=== PATIENT | male | born 1945 | race Caucasian/White ===

== ENCOUNTER 2018-11-03 19:59 | Inpatient (IN) ==
[2018-11-03] MEDS ORDERED: CEFEPIME 2,000 MG in SODIUM CHLORIDE 0.9% 100 ML IV STA (21:35)
[2018-11-03] MEDS ORDERED: VANCOMYCIN INJ 1,250 MG in SODIUM CHLORIDE 0.9% 250 ML IV STA (21:35)
[2018-11-03 22:07] LABS: Basophils % 0.2 % (0.0-0.8); Eosinophils # 0.1 10*3/uL (0.0-0.87); Hematocrit 34.2 VOL% (42.0-52.0); Hemoglobin 10.6 GM/DL (14.0-18.0); Immature Granulocytes % 0.4 %; Immature Granulocytes Absolute 0.05 #; Lymphocytes # 1.4 10*3/uL (1.4-4.0); Lymphocytes % 10.8 % (21.2-54.2); Mean Corpuscular Volume 97.4 FL (87-102); Mean Platelet Volume 9.4 FL (9.6-12.0); Monocytes % 5.2 % (1.7-12.7); Neutrophils % 82.4 % (38.7-73.9); Platelet Count 430 T/CUMM (130-400); Red Blood Count 3.51 MC/CUMM (3.8-5.5); Red Cell Distribution Width 12.8 % (9.3-17.3)
[2018-11-03] MEDS ORDERED: CEFEPIME 2,000 MG VIAL ONE (22:15)
[2018-11-03] MEDS ORDERED: SODIUM CHLORIDE 0.9% 1,000 ML IV STA (22:27)
[2018-11-03 22:30] LABS: Alanine Aminotransferase 72 U/L (16-61); Albumin 2.5 G/DL (3.4-5.0); Alkaline Phosphatase 112 U/L (45-117); Aspartate Amino Transferase 41 U/L (0-37); Bilirubin,Total < 0.39 MG/DL (0.2-1.0); Blood Urea Nitrogen 25 MG/DL (7-18); Calcium 8.8 MG/DL (8.5-10.1); Glucose 285 MG/DL (74-106); Total Protein 7.7 G/DL (6.4-8.3)
[2018-11-03] MEDS ORDERED: CALCIUM GLUCONATE 2,000 MG in SODIUM CHLORIDE 0.9% 100 ML IV ONE (22:48)
[2018-11-03] MEDS ORDERED: DEXTROSE 50% 25 GM/50 ML VIAL IV STA (22:49)
[2018-11-03] MEDS ORDERED: SODIUM BICARBONATE 50 MEQ/50 ML VIAL IV STA (22:49)
[2018-11-03] MEDS ORDERED: INSULIN REGULAR 100 UNIT/ML IV STA (22:49)
[2018-11-03] MEDS ORDERED: SODIUM POLYSTYRENE SULFATE 15 GM/60 ML BOTTLE PO STA (22:50)
[2018-11-03] MEDS ORDERED: SODIUM BICARBONATE 50 MEQ/50 ML SYRINGE IV ONE (23:09)
[2018-11-03] MEDS ORDERED: DEXTROSE 50% 25 GM/50 ML SYRINGE IV ONE (23:09)
[2018-11-04] MEDS ORDERED: hydrALAZINE 25 MG TABLET PO ONE (00:08)
[2018-11-04] MEDS ORDERED: hydroCHLOROthiazide 25 MG TABLET ONE (00:08)
[2018-11-04] MEDS ORDERED: hydrALAZINE 20 MG/1 ML VIAL IV PRN (00:56)
[2018-11-04] MEDS ORDERED: GLUCAGON 1 MG VIAL IM PRN (00:56)
[2018-11-04] MEDS ORDERED: DEXTROSE 50% 25 GM/50 ML VIAL IV PRN (00:56)
[2018-11-04] MEDS ORDERED: ACETAMINOPHEN 325 MG TABLET PO PRN (00:56)
[2018-11-04] MEDS ORDERED: ONDANSETRON 4 MG/2 ML VIAL IV PRN (00:56)
[2018-11-04] MEDS ORDERED: HYDROmorphone 2 MG/1 ML VIAL IV PRN (00:56)
[2018-11-04] MEDS ORDERED: DOCUSATE SODIUM 100 MG CAPSULE PO PRN (00:56)
[2018-11-04 04:22] LABS: Basophils % 0.2 % (0.0-0.8); Eosinophils # 0.1 10*3/uL (0.0-0.87); Eosinophils % 1.3 % (0.00-10.9); Hematocrit 30.3 VOL% (42.0-52.0); Hemoglobin 9.6 GM/DL (14.0-18.0); Immature Granulocytes % 0.2 %; Immature Granulocytes Absolute 0.02 #; Lymphocytes # 1.3 10*3/uL (1.4-4.0); Lymphocytes % 12.2 % (21.2-54.2); Mean Corpuscular HGB Conc 31.7 GM/DL (32-36); Mean Corpuscular Volume 95.6 FL (87-102); Mean Platelet Volume 9.6 FL (9.6-12.0); Monocytes % 5.7 % (1.7-12.7); Neutrophils % 80.4 % (38.7-73.9); Platelet Count 381 T/CUMM (130-400); Red Blood Count 3.17 MC/CUMM (3.8-5.5); Red Cell Distribution Width 12.7 % (9.3-17.3); White Blood Count 10.6 T/CUMM (4-12)
[2018-11-04 04:57] LABS: Calcium 8.8 MG/DL (8.5-10.1); Osmolality,Calculated 284.5 MOS/KG (273-304)
[2018-11-04] MEDS: CEFEPIME 1,000 MG in SODIUM CHLORIDE 0.9% 100 ML IV SCH ×3 (05:26→18:25)
[2018-11-04] MEDS: INSULIN REGULAR 100 UNIT/ML SUBCUT SCH ×3 (05:42→17:06)
[2018-11-04] MEDS: amLODIPine 10 MG TABLET PO SCH (09:26)
[2018-11-04] MEDS: GABAPENTIN 300 MG CAPSULE PO SCH ×2 (09:26→21:39)
[2018-11-04] MEDS: hydrALAZINE 25 MG TABLET PO SCH ×3 (09:26→21:39)
[2018-11-04] MEDS ORDERED: LIDOCAINE 1% 20 ML VIAL ONE (14:20)
[2018-11-04] MEDS: VANCOMYCIN INJ 1,500 MG in SODIUM CHLORIDE 0.9% 500 ML IV SCH (16:07)
[2018-11-05] MEDS: CEFEPIME 1,000 MG in SODIUM CHLORIDE 0.9% 100 ML IV SCH ×3 (01:29→11:59)
[2018-11-05] MEDS: INSULIN REGULAR 100 UNIT/ML SUBCUT SCH ×3 (01:34→11:58)
[2018-11-05 06:04] LABS: Basophils % 0.2 % (0.0-0.8); Eosinophils # 0.3 10*3/uL (0.0-0.87); Eosinophils % 3.1 % (0.00-10.9); Hematocrit 29.9 VOL% (42.0-52.0); Hemoglobin 9.7 GM/DL (14.0-18.0); Immature Granulocytes % 0.2 %; Immature Granulocytes Absolute 0.02 #; Lymphocytes # 1.4 10*3/uL (1.4-4.0); Lymphocytes % 16.3 % (21.2-54.2); Mean Corpuscular HGB Conc 32.4 GM/DL (32-36); Mean Corpuscular Volume 95.2 FL (87-102); Mean Platelet Volume 9.2 FL (9.6-12.0); Monocytes % 6.5 % (1.7-12.7); Neutrophils % 73.7 % (38.7-73.9); Platelet Count 378 T/CUMM (130-400); Red Blood Count 3.14 MC/CUMM (3.8-5.5); Red Cell Distribution Width 12.8 % (9.3-17.3); White Blood Count 8.5 T/CUMM (4-12)
[2018-11-05 06:21] LABS: Calcium 8.4 MG/DL (8.5-10.1); Osmolality,Calculated 280.7 MOS/KG (273-304)
[2018-11-05] MEDS ORDERED: MIDAZOLAM 2 MG/2 ML VIAL ONE (06:39)
[2018-11-05] MEDS: hydrALAZINE 25 MG TABLET PO SCH ×2 (09:31→14:55)
[2018-11-05] MEDS: GABAPENTIN 300 MG CAPSULE PO SCH (09:31)
[2018-11-05] MEDS: amLODIPine 10 MG TABLET PO SCH (09:31)
[2018-11-05] MEDS: VANCOMYCIN INJ 1,500 MG in SODIUM CHLORIDE 0.9% 500 ML IV SCH (10:24)
[2018-11-05 11:23] VITALS: BP 159/63
[2018-11-05] MEDS ORDERED: SODIUM HYPOCHLORITE 0.25% IRRIG 473 ML BOTTLE TOP SCH (15:00)
== END 2018-11-05 15:30 | disposition home health service (06) | DRG 617 ==
LOC: N.ED 19:59 → N.EDINP 11-04 00:08 → N.3E 11-04 00:48
PROVIDERS: ADMIT Internal Medicine; ATTEND Internal Medicine

== ENCOUNTER 2018-11-11 17:21 | Inpatient (IN) ==
[2018-11-11] MEDS ORDERED: SODIUM CHLORIDE 0.9% 1,000 ML IV STA (17:53)
[2018-11-11] MEDS ORDERED: VANCOMYCIN INJ 1,000 MG in SODIUM CHLORIDE 0.9% 250 ML IV STA (17:53)
[2018-11-11 18:38] LABS: Basophils % 0.5 % (0.0-0.8); Hematocrit 30.1 VOL% (42.0-52.0); Hemoglobin 9.6 GM/DL (14.0-18.0); Immature Granulocytes % 0.5 %; Immature Granulocytes Absolute 0.03 #; Lymphocytes # 0.4 10*3/uL (1.4-4.0); Lymphocytes % 6.3 % (21.2-54.2); Mean Corpuscular HGB Conc 31.9 GM/DL (32-36); Mean Corpuscular Volume 93.8 FL (87-102); Mean Platelet Volume 9.7 FL (9.6-12.0); Monocytes % 5.6 % (1.7-12.7); Neutrophils % 87.1 % (38.7-73.9); Platelet Count 300 T/CUMM (130-400); Red Blood Count 3.21 MC/CUMM (3.8-5.5); White Blood Count 6.6 T/CUMM (4-12)
[2018-11-11] MEDS ORDERED: ALBUTEROL NEB SOLN 5 MG/ML 20 ML/BOTTLE CONT NEB STA (18:43)
[2018-11-11 18:48] LABS: PT Patient Result 10.9 SECS (9.6-12.2)
[2018-11-11 18:55] LABS: Alanine Aminotransferase 70 U/L (16-61); Albumin 2.6 G/DL (3.4-5.0); Alkaline Phosphatase 95 U/L (45-117); Aspartate Amino Transferase 56 U/L (0-37); Blood Urea Nitrogen 37 MG/DL (7-18); Calcium 8.1 MG/DL (8.5-10.1); Glucose 139 MG/DL (74-106); Osmolality,Calculated 270.8 MOS/KG (273-304); Total Protein 6.6 G/DL (6.4-8.3)
[2018-11-11 18:56] LABS: Troponin I 0.054 NG/ML (0.00-0.045)
[2018-11-11] MEDS ORDERED: NITROGLYCERIN 2% OINT 1 INCH/GM PACK TOP STA (19:04)
[2018-11-11 19:45] LABS: Sedimentation Rate-Westergren 117 MM/HR (0-20)
[2018-11-11 20:18] LABS: Apearance,Urine CLEAR (Clear); Bacteria,Urine Occasional /HPF (Few); Bilirubin,Urine Negative (Negative); Blood, Urine Negative (Negative); Glucose,Urine (UA) Negative (Negative); Hyaline Casts,Urine 13 /LPF (0-3); Ketones,Urine Negative (Negative); Mucus,Urine Occasional /LPF (Occasional); Nitrite,Urine Negative (Negative); Protein,Urine 100 MG/DL; RBC,Urine 2 /HPF (0-4); Urine Color Yellow (Yellow); Urine Specific Gravity 1.013 (1.001-1.035); Urine Urobilinogen < 2.0 EU/DL (0.2-1.0); WBC,Urine 1 /HPF (0-6)
[2018-11-11 20:30] LABS: Barbiturates Screen,Urine Negative (Negative); Benzodiazepines Screen,Urine Negative (Negative); Cannabinoid Screen,Urine Negative (Negative); Opiate Screen,Urine Positive (Negative); Phencyclidine Screen,Urine Negative (Negative)
[2018-11-11] MEDS ORDERED: GLUCAGON 1 MG VIAL IM PRN (20:44)
[2018-11-11] MEDS ORDERED: ONDANSETRON 4 MG/2 ML VIAL IV PRN (20:44)
[2018-11-11] MEDS ORDERED: DOCUSATE SODIUM 100 MG CAPSULE PO PRN (20:44)
[2018-11-11] MEDS ORDERED: DEXTROSE 50% 25 GM/50 ML VIAL IV PRN (20:44)
[2018-11-11] MEDS ORDERED: CEFTAROLINE 400 MG in SODIUM CHLORIDE 0.9% 100 ML IV SCH (22:30)
[2018-11-11] MEDS ORDERED: CEFTAROLINE 300 MG in SODIUM CHLORIDE 0.9% 100 ML IV SCH (22:30)
[2018-11-11] MEDS: INSULIN REGULAR 100 UNIT/ML SUBCUT SCH (23:12)
[2018-11-11] MEDS: ENOXAPARIN 30 MG/0.3 ML SYRINGE SUBCUT SCH (23:29)
[2018-11-11 23:50] LABS: Troponin I 0.061 NG/ML (0.00-0.045)
[2018-11-12 04:41] LABS: Basophils % 0.3 % (0.0-0.8); Hematocrit 26.7 VOL% (42.0-52.0); Hemoglobin 8.6 GM/DL (14.0-18.0); Immature Granulocytes % 0.5 %; Immature Granulocytes Absolute 0.03 #; Lymphocytes # 0.4 10*3/uL (1.4-4.0); Mean Corpuscular HGB Conc 32.2 GM/DL (32-36); Mean Platelet Volume 10.1 FL (9.6-12.0); Monocytes % 2.3 % (1.7-12.7); Neutrophils % 89.9 % (38.7-73.9); Platelet Count 285 T/CUMM (130-400); Red Blood Count 2.84 MC/CUMM (3.8-5.5); Red Cell Distribution Width 13.9 % (9.3-17.3); White Blood Count 5.7 T/CUMM (4-12)
[2018-11-12 05:06] LABS: Band Neutrophils 5 % (0-10); Eosinophils 2 % (0-10); Hypochromasia 1+; Lymphocytes 5 % (20-55); Platelet Estimate Adequate; Segmented Neutrophils 85 % (50-85); Total Cells Counted 100
[2018-11-12 05:15] LABS: Calcium 8.4 MG/DL (8.5-10.1); Osmolality,Calculated 274.4 MOS/KG (273-304)
[2018-11-12 05:20] LABS: Troponin I 0.064 NG/ML (0.00-0.045)
[2018-11-12] MEDS: INSULIN REGULAR 100 UNIT/ML SUBCUT SCH ×4 (07:50→21:28)
[2018-11-12] MEDS: ACETAMINOPHEN 325 MG TABLET PO PRN ×3 (08:33→23:42)
[2018-11-12] MEDS: ASPIRIN EC 81 MG TABLET PO SCH (08:34)
[2018-11-12] MEDS ORDERED: CLOPIDOGREL 75 MG TABLET PO SCH (09:00)
[2018-11-12] MEDS: CEFTAROLINE 300 MG in SODIUM CHLORIDE 0.9% 100 ML IV SCH ×2 (11:10→21:40)
[2018-11-12] MEDS: ENOXAPARIN 30 MG/0.3 ML SYRINGE SUBCUT SCH (21:40)
[2018-11-13] MEDS: INSULIN REGULAR 100 UNIT/ML SUBCUT SCH ×4 (07:27→21:50)
[2018-11-13] MEDS: ACETAMINOPHEN 325 MG TABLET PO PRN (07:45)
[2018-11-13] MEDS: ASPIRIN EC 81 MG TABLET PO SCH (09:35)
[2018-11-13] MEDS ORDERED: SODIUM CHLORIDE 0.9% 500 ML IV ONE (10:52)
[2018-11-13] MEDS: CEFTAROLINE 300 MG in SODIUM CHLORIDE 0.9% 100 ML IV SCH (12:13)
[2018-11-13] MEDS: SODIUM CHLORIDE 0.9% 1,000 ML IV SCH ×2 (13:33→23:08)
[2018-11-13] MEDS: ENOXAPARIN 30 MG/0.3 ML SYRINGE SUBCUT SCH (21:38)
[2018-11-14] MEDS: CEFTAROLINE 300 MG in SODIUM CHLORIDE 0.9% 100 ML IV SCH (00:10)
[2018-11-14 06:19] LABS: Basophils % 0.6 % (0.0-0.8); Eosinophils # 0.1 10*3/uL (0.0-0.87); Eosinophils % 4.2 % (0.00-10.9); Hematocrit 26.8 VOL% (42.0-52.0); Hemoglobin 8.7 GM/DL (14.0-18.0); Immature Granulocytes % 0.3 %; Immature Granulocytes Absolute 0.01 #; Lymphocytes # 1.1 10*3/uL (1.4-4.0); Lymphocytes % 34.2 % (21.2-54.2); Mean Corpuscular HGB Conc 32.5 GM/DL (32-36); Mean Platelet Volume 10.3 FL (9.6-12.0); Monocytes % 5.2 % (1.7-12.7); Neutrophils % 55.5 % (38.7-73.9); Platelet Count 267 T/CUMM (130-400); Red Blood Count 2.85 MC/CUMM (3.8-5.5); Red Cell Distribution Width 14.1 % (9.3-17.3); White Blood Count 3.3 T/CUMM (4-12)
[2018-11-14 06:40] LABS: Osmolality,Calculated 280.5 MOS/KG (273-304)
[2018-11-14 06:51] LABS: Band Neutrophils 8 % (0-10); Eosinophils 3 % (0-10); Lymphocytes 34 % (20-55); Segmented Neutrophils 51 % (50-85); Total Cells Counted 100
[2018-11-14 06:52] LABS: Anisocytosis 1+; Macrocytosis 1+; Platelet Estimate Normal
[2018-11-14] MEDS: INSULIN REGULAR 100 UNIT/ML SUBCUT SCH ×4 (09:12→21:32)
[2018-11-14] MEDS: ASPIRIN EC 81 MG TABLET PO SCH (09:15)
[2018-11-14] MEDS: ACETAMINOPHEN 325 MG TABLET PO PRN (09:23)
[2018-11-14] MEDS: SODIUM CHLORIDE 0.9% 1,000 ML IV SCH ×2 (10:11→21:31)
[2018-11-14] MEDS: ENOXAPARIN 30 MG/0.3 ML SYRINGE SUBCUT SCH (21:33)
[2018-11-15] MEDS: SODIUM CHLORIDE 0.9% 1,000 ML IV SCH ×2 (05:31→15:40)
[2018-11-15 05:59] LABS: Calcium 8.7 MG/DL (8.5-10.1)
[2018-11-15] MEDS: ASPIRIN EC 81 MG TABLET PO SCH (08:28)
[2018-11-15] MEDS: INSULIN REGULAR 100 UNIT/ML SUBCUT SCH ×4 (08:28→21:41)
[2018-11-15] MEDS: ENOXAPARIN 40 MG/0.4 ML SYRINGE SUBCUT SCH (21:42)
[2018-11-16] MEDS: SODIUM CHLORIDE 0.9% 1,000 ML IV SCH ×5 (01:16→21:23)
[2018-11-16] MEDS: ASPIRIN EC 81 MG TABLET PO SCH (08:31)
[2018-11-16] MEDS: INSULIN REGULAR 100 UNIT/ML SUBCUT SCH ×4 (08:32→21:29)
[2018-11-16] MEDS: MIDODRINE 5 MG TABLET PO SCH ×2 (15:09→21:27)
[2018-11-16] MEDS: ENOXAPARIN 40 MG/0.4 ML SYRINGE SUBCUT SCH (21:30)
[2018-11-17] MEDS: SODIUM CHLORIDE 0.9% 1,000 ML IV SCH ×4 (02:13→15:02)
[2018-11-17 06:05] LABS: Calcium 8.1 MG/DL (8.5-10.1); Osmolality,Calculated 281.1 MOS/KG (273-304)
[2018-11-17] MEDS: INSULIN REGULAR 100 UNIT/ML SUBCUT SCH ×4 (07:47→21:20)
[2018-11-17] MEDS: MIDODRINE 5 MG TABLET PO SCH ×3 (08:49→21:20)
[2018-11-17] MEDS: ASPIRIN EC 81 MG TABLET PO SCH (08:49)
[2018-11-17] MEDS: hydrALAZINE 25 MG TABLET PO SCH ×2 (16:10→21:20)
[2018-11-17 18:02] LABS: Basophils % 0.6 % (0.0-0.8); Eosinophils # 0.2 10*3/uL (0.0-0.87); Eosinophils % 3.9 % (0.00-10.9); Hematocrit 31.1 VOL% (42.0-52.0); Immature Granulocytes % 0.4 %; Immature Granulocytes Absolute 0.02 #; Lymphocytes # 1.7 10*3/uL (1.4-4.0); Lymphocytes % 36.6 % (21.2-54.2); Mean Corpuscular HGB Conc 32.2 GM/DL (32-36); Mean Corpuscular Volume 93.7 FL (87-102); Mean Platelet Volume 9.8 FL (9.6-12.0); Monocytes % 6.6 % (1.7-12.7); Neutrophils % 51.9 % (38.7-73.9); Red Blood Count 3.32 MC/CUMM (3.8-5.5); Red Cell Distribution Width 14.3 % (9.3-17.3)
[2018-11-17 18:03] LABS: Platelet Count 360 T/CUMM (130-400); White Blood Count 4.7 T/CUMM (4-12)
[2018-11-17] MEDS ORDERED: hydrALAZINE 25 MG TABLET PO SCH (21:00)
[2018-11-17] MEDS: GABAPENTIN 300 MG CAPSULE PO SCH (21:19)
[2018-11-17] MEDS: ATORVASTATIN 40 MG TABLET PO SCH (21:20)
[2018-11-17] MEDS: ENOXAPARIN 40 MG/0.4 ML SYRINGE SUBCUT SCH (22:50)
[2018-11-18 06:21] LABS: Basophils % 0.6 % (0.0-0.8); Eosinophils # 0.2 10*3/uL (0.0-0.87); Eosinophils % 3.7 % (0.00-10.9); Hematocrit 30.2 VOL% (42.0-52.0); Hemoglobin 9.8 GM/DL (14.0-18.0); Immature Granulocytes % 0.2 %; Immature Granulocytes Absolute 0.01 #; Lymphocytes # 1.8 10*3/uL (1.4-4.0); Mean Corpuscular HGB Conc 32.5 GM/DL (32-36); Mean Corpuscular Volume 93.8 FL (87-102); Mean Platelet Volume 9.4 FL (9.6-12.0); Monocytes % 6.3 % (1.7-12.7); Neutrophils % 53.2 % (38.7-73.9); Platelet Count 344 T/CUMM (130-400); Red Blood Count 3.22 MC/CUMM (3.8-5.5); Red Cell Distribution Width 14.3 % (9.3-17.3); White Blood Count 4.9 T/CUMM (4-12)
[2018-11-18] MEDS: hydrALAZINE 25 MG TABLET PO SCH ×3 (08:45→20:36)
[2018-11-18] MEDS: GABAPENTIN 300 MG CAPSULE PO SCH ×2 (08:45→20:36)
[2018-11-18] MEDS: ASPIRIN EC 81 MG TABLET PO SCH (08:45)
[2018-11-18] MEDS: MIDODRINE 5 MG TABLET PO SCH ×3 (08:47→20:36)
[2018-11-18] MEDS: INSULIN REGULAR 100 UNIT/ML SUBCUT SCH ×4 (08:48→20:36)
[2018-11-18] MEDS: FLUDROCORTISONE 0.1 MG TABLET PO SCH (16:22)
[2018-11-18] MEDS: ATORVASTATIN 40 MG TABLET PO SCH (20:36)
[2018-11-18] MEDS: ACETAMINOPHEN 325 MG TABLET PO PRN (23:28)
[2018-11-18] MEDS: ENOXAPARIN 40 MG/0.4 ML SYRINGE SUBCUT SCH (23:28)
[2018-11-19 05:31] LABS: Basophils % 0.5 % (0.0-0.8); Eosinophils # 0.2 10*3/uL (0.0-0.87); Eosinophils % 3.4 % (0.00-10.9); Hematocrit 29.7 VOL% (42.0-52.0); Hemoglobin 9.2 GM/DL (14.0-18.0); Immature Granulocytes % 0.3 %; Immature Granulocytes Absolute 0.02 #; Lymphocytes # 2.4 10*3/uL (1.4-4.0); Lymphocytes % 38.9 % (21.2-54.2); Mean Corpuscular Volume 94.9 FL (87-102); Mean Platelet Volume 10.1 FL (9.6-12.0); Monocytes % 7.6 % (1.7-12.7); Neutrophils % 49.3 % (38.7-73.9); Platelet Count 398 T/CUMM (130-400); Red Blood Count 3.13 MC/CUMM (3.8-5.5); Red Cell Distribution Width 14.5 % (9.3-17.3); White Blood Count 6.2 T/CUMM (4-12)
[2018-11-19 06:03] LABS: Calcium 7.9 MG/DL (8.5-10.1); Osmolality,Calculated 286.1 MOS/KG (273-304)
[2018-11-19] MEDS: hydrALAZINE 25 MG TABLET PO SCH (09:18)
[2018-11-19] MEDS: MIDODRINE 5 MG TABLET PO SCH (09:18)
[2018-11-19] MEDS: FLUDROCORTISONE 0.1 MG TABLET PO SCH (09:18)
[2018-11-19] MEDS: GABAPENTIN 300 MG CAPSULE PO SCH (09:18)
[2018-11-19] MEDS: ASPIRIN EC 81 MG TABLET PO SCH (09:18)
[2018-11-19] MEDS: INSULIN REGULAR 100 UNIT/ML SUBCUT SCH ×2 (09:19→12:03)
[2018-11-19 11:16] VITALS: BP 135/59
== END 2018-11-19 14:36 | DRG 74 ==
LOC: EDBD → EDUNIT# → N.ED 17:21 → SUATTDRO 20:44 → N.EDINP 20:44 → N.3E 22:07
PROVIDERS: ADMIT Internal Medicine Geriatric Medicine; ATTEND Internal Medicine

== ENCOUNTER 2019-02-25 14:36 | Inpatient (IN) ==
[2019-02-25] MEDS ORDERED: SODIUM CHLORIDE 0.9% 1,000 ML IV STA (15:12)
[2019-02-25 15:27] LABS: Basophils % 0.4 % (0.0-0.8); Eosinophils # 0.1 10*3/uL (0.0-0.87); Eosinophils % 1.3 % (0.00-10.9); Hematocrit 26.6 VOL% (42.0-52.0); Hemoglobin 8.2 GM/DL (14.0-18.0); Immature Granulocytes % 0.7 %; Immature Granulocytes Absolute 0.05 #; Lymphocytes # 0.5 10*3/uL (1.4-4.0); Lymphocytes % 6.5 % (21.2-54.2); Mean Corpuscular HGB Conc 30.8 GM/DL (32-36); Mean Corpuscular Volume 87.2 FL (87-102); Mean Platelet Volume 9.4 FL (9.6-12.0); Monocytes % 1.7 % (1.7-12.7); Neutrophils % 89.4 % (38.7-73.9); Platelet Count 408 T/CUMM (130-400); Red Blood Count 3.05 MC/CUMM (3.8-5.5); Red Cell Distribution Width 17.1 % (9.3-17.3); White Blood Count 7.2 T/CUMM (4-12)
[2019-02-25 15:52] LABS: Albumin 1.9 G/DL (3.4-5.0); Bilirubin,Total 0.4 MG/DL (0.2-1.0); Calcium 7.9 MG/DL (8.5-10.1); Osmolality,Calculated 276.4 MOS/KG (273-304); Total Protein 6.3 G/DL (6.4-8.3)
[2019-02-25] MEDS ORDERED: cefTRIAXone 1,000 MG in SODIUM CHLORIDE 0.9% 100 ML IV STA (16:23)
[2019-02-25] MEDS ORDERED: cefTRIAXone 1,000 MG in SYRINGE 1 EACH IV STA (16:37)
[2019-02-25] MEDS ORDERED: ONDANSETRON 4 MG/2 ML VIAL IV PRN (16:51)
[2019-02-25] MEDS: SODIUM CHLORIDE 0.9% 1,000 ML IV SCH (17:15)
[2019-02-25] MEDS: ACETAMINOPHEN 325 MG TABLET PO PRN (17:15)
[2019-02-25] MEDS ORDERED: MAGNESIUM SULF RIDER 4 GM in PREMIX 1 EACH IV PRN (17:28)
[2019-02-25] MEDS ORDERED: DEXTROSE 10% 1,000 ML BAG IV PRN (17:29)
[2019-02-25] MEDS ORDERED: GLUCAGON 1 MG VIAL IM PRN (17:29)
[2019-02-25] MEDS: ALBUTEROL/IPRATROPIUM 3 ML NEB RESP TX SCH (20:16)
[2019-02-25] MEDS: INSULIN LISPRO 100 UNIT/ML SUBCUT SCH (21:16)
[2019-02-25] MEDS: POTASSIUM CHLORIDE 20 MEQ TABLET PO PRN ×2 (21:17→23:22)
[2019-02-25] MEDS: MAGNESIUM SULF RIDER 2 GM in PREMIX 1 EACH IV PRN (21:17)
[2019-02-26] MEDS: ALBUTEROL/IPRATROPIUM 3 ML NEB RESP TX SCH ×4 (00:06→19:38)
[2019-02-26] MEDS: POTASSIUM CHLORIDE 20 MEQ TABLET PO PRN ×2 (01:25→03:15)
[2019-02-26 05:35] LABS: Basophils % 0.8 % (0.0-0.8); Eosinophils # 0.2 10*3/uL (0.0-0.87); Eosinophils % 3.6 % (0.00-10.9); Hematocrit 24.8 VOL% (42.0-52.0); Hemoglobin 7.6 GM/DL (14.0-18.0); Immature Granulocytes % 0.6 %; Immature Granulocytes Absolute 0.03 #; Lymphocytes # 0.9 10*3/uL (1.4-4.0); Lymphocytes % 17.2 % (21.2-54.2); Mean Corpuscular HGB Conc 30.6 GM/DL (32-36); Mean Corpuscular Volume 87.6 FL (87-102); Mean Platelet Volume 9.6 FL (9.6-12.0); Monocytes % 2.4 % (1.7-12.7); Neutrophils % 75.4 % (38.7-73.9); Platelet Count 368 T/CUMM (130-400); Red Blood Count 2.83 MC/CUMM (3.8-5.5); Red Cell Distribution Width 17.2 % (9.3-17.3)
[2019-02-26 06:00] LABS: Alanine Aminotransferase 15 U/L (16-61); Albumin 1.8 G/DL (3.4-5.0); Alkaline Phosphatase 88 U/L (45-117); Aspartate Amino Transferase 19 U/L (0-37); Bilirubin,Total < 0.39 MG/DL (0.2-1.0); Blood Urea Nitrogen 24 MG/DL (7-18); Calcium 7.9 MG/DL (8.5-10.1); Estimated Glom Filtration Rate 45 ML/MIN; Glucose 148 MG/DL (74-106); Osmolality,Calculated 276.1 MOS/KG (273-304); Total Protein 5.8 G/DL (6.4-8.3)
[2019-02-26 07:46] LABS: % Iron Saturation 19.8 % (18-50); Ferritin 228.4 ng/ml (26-388)
[2019-02-26 07:47] LABS: Hematocrit 24.6 VOL% (42.0-52.0); Hemoglobin 7.5 GM/DL (14.0-18.0)
[2019-02-26] MEDS: INSULIN LISPRO 100 UNIT/ML SUBCUT SCH ×4 (07:59→21:10)
[2019-02-26] MEDS: LEVOFLOXACIN INJ 750 MG in PREMIX 1 EACH IV SCH (08:56)
[2019-02-26] MEDS: PANTOPRAZOLE 40 MG TABLET PO SCH (08:59)
[2019-02-26] MEDS ORDERED: SODIUM CHLORIDE 0.9% 1,000 ML IV PRN (10:52)
[2019-02-26] MEDS: ACETAMINOPHEN 325 MG TABLET PO PRN (12:55)
[2019-02-26] MEDS ORDERED: DOCUSATE SODIUM 100 MG CAPSULE PO PRN (13:26)
[2019-02-26] MEDS: carvediloL 3.125 MG TABLET PO SCH (16:38)
[2019-02-26] MEDS ORDERED: TAMSULOSIN 0.4 MG CAPSULE PO SCH (21:00)
[2019-02-26] MEDS: SERTRALINE 50 MG TABLET PO SCH (21:09)
[2019-02-26] MEDS: GABAPENTIN 300 MG CAPSULE PO SCH (21:09)
[2019-02-26] MEDS: ISOSORBIDE MONONITRATE 30 MG TABLET PO SCH (21:10)
[2019-02-26] MEDS: ATORVASTATIN 40 MG TABLET PO SCH (21:10)
[2019-02-26] MEDS: SODIUM CHLORIDE 0.9% 1,000 ML IV SCH (21:12)
[2019-02-26 21:55] LABS: Hematocrit 28.3 VOL% (42.0-52.0)
[2019-02-27] MEDS: ALBUTEROL/IPRATROPIUM 3 ML NEB RESP TX SCH ×4 (01:00→19:35)
[2019-02-27 05:16] LABS: Basophils % 0.6 % (0.0-0.8); Eosinophils # 0.1 10*3/uL (0.0-0.87); Eosinophils % 2.4 % (0.00-10.9); Hemoglobin 8.1 GM/DL (14.0-18.0); Immature Granulocytes % 0.4 %; Immature Granulocytes Absolute 0.02 #; Lymphocytes # 1.1 10*3/uL (1.4-4.0); Lymphocytes % 22.4 % (21.2-54.2); Mean Corpuscular HGB Conc 32.4 GM/DL (32-36); Mean Corpuscular Volume 84.7 FL (87-102); Mean Platelet Volume 9.6 FL (9.6-12.0); Monocytes % 4.3 % (1.7-12.7); Neutrophils % 69.9 % (38.7-73.9); Platelet Count 288 T/CUMM (130-400); Red Blood Count 2.95 MC/CUMM (3.8-5.5); White Blood Count 4.9 T/CUMM (4-12)
[2019-02-27 05:49] LABS: Albumin 1.6 G/DL (3.4-5.0); Bilirubin,Total 0.4 MG/DL (0.2-1.0); Calcium 7.5 MG/DL (8.5-10.1); Osmolality,Calculated 272.1 MOS/KG (273-304)
[2019-02-27] MEDS: INSULIN LISPRO 100 UNIT/ML SUBCUT SCH ×4 (07:32→21:27)
[2019-02-27] MEDS: ASPIRIN EC 81 MG TABLET PO SCH (09:24)
[2019-02-27] MEDS: MULTIVITAMIN (CENTRUM) TABLET PO SCH (09:24)
[2019-02-27] MEDS: FLUDROCORTISONE 0.1 MG TABLET PO SCH (09:24)
[2019-02-27] MEDS: ACETAMINOPHEN 325 MG TABLET PO PRN (09:24)
[2019-02-27] MEDS: GABAPENTIN 300 MG CAPSULE PO SCH ×2 (09:25→21:24)
[2019-02-27] MEDS: amLODIPine 10 MG TABLET PO SCH (09:25)
[2019-02-27] MEDS: PANTOPRAZOLE 40 MG TABLET PO SCH (09:25)
[2019-02-27] MEDS: CLOPIDOGREL 75 MG TABLET PO SCH (09:25)
[2019-02-27] MEDS: carvediloL 3.125 MG TABLET PO SCH ×2 (09:25→16:30)
[2019-02-27] MEDS: LEVOFLOXACIN INJ 750 MG in PREMIX 1 EACH IV SCH (09:26)
[2019-02-27] MEDS: POLYETHYLENE GLYCOL POWDER 17 GM PACK PO SCH (11:51)
[2019-02-27] MEDS: TAMSULOSIN 0.4 MG CAPSULE PO SCH ×2 (11:51→21:24)
[2019-02-27] MEDS: BISACODYL 5 MG TABLET PO SCH (11:51)
[2019-02-27 13:33] LABS: Apearance,Urine CLEAR (Clear); Bacteria,Urine Occasional /HPF (Few); Bilirubin,Urine Negative (Negative); Blood, Urine Small mg/dL (Negative); Glucose,Urine (UA) Negative (Negative); Ketones,Urine Negative (Negative); Nitrite,Urine Negative (Negative); Protein,Urine 30 MG/DL; RBC,Urine 5 /HPF (0-4); Urine Color Straw (Yellow); Urine Specific Gravity 1.005 (1.001-1.035); Urine Urobilinogen < 2.0 EU/DL (0.2-1.0); WBC,Urine 1 /HPF (0-6)
[2019-02-27] MEDS: SODIUM CHLORIDE 0.9% 1,000 ML IV SCH (16:29)
[2019-02-27] MEDS: ATORVASTATIN 40 MG TABLET PO SCH (21:24)
[2019-02-27] MEDS: SERTRALINE 50 MG TABLET PO SCH (21:24)
[2019-02-27] MEDS: ISOSORBIDE MONONITRATE 30 MG TABLET PO SCH (21:24)
[2019-02-28] MEDS: ALBUTEROL/IPRATROPIUM 3 ML NEB RESP TX SCH ×4 (00:36→21:28)
[2019-02-28 05:06] LABS: Basophils % 0.4 % (0.0-0.8); Eosinophils # 0.1 10*3/uL (0.0-0.87); Eosinophils % 2.7 % (0.00-10.9); Hemoglobin 7.7 GM/DL (14.0-18.0); Immature Granulocytes % 0.4 %; Immature Granulocytes Absolute 0.02 #; Lymphocytes # 1.2 10*3/uL (1.4-4.0); Mean Corpuscular HGB Conc 30.8 GM/DL (32-36); Mean Corpuscular Volume 86.8 FL (87-102); Mean Platelet Volume 9.8 FL (9.6-12.0); Monocytes % 5.7 % (1.7-12.7); Neutrophils % 67.8 % (38.7-73.9); Platelet Count 308 T/CUMM (130-400); Red Blood Count 2.88 MC/CUMM (3.8-5.5); White Blood Count 5.3 T/CUMM (4-12)
[2019-02-28 05:24] LABS: Alanine Aminotransferase 31 U/L (16-61); Albumin 1.7 G/DL (3.4-5.0); Alkaline Phosphatase 145 U/L (45-117); Aspartate Amino Transferase 34 U/L (0-37); Bilirubin,Total < 0.39 MG/DL (0.2-1.0); Blood Urea Nitrogen 22 MG/DL (7-18); Calcium 7.3 MG/DL (8.5-10.1); Estimated Glom Filtration Rate 45 ML/MIN; Glucose 199 MG/DL (74-106); Osmolality,Calculated 283.7 MOS/KG (273-304); Total Protein 5.3 G/DL (6.4-8.3)
[2019-02-28] MEDS: TAMSULOSIN 0.4 MG CAPSULE PO SCH ×2 (08:22→21:06)
[2019-02-28] MEDS: carvediloL 3.125 MG TABLET PO SCH ×2 (08:22→16:11)
[2019-02-28] MEDS: POLYETHYLENE GLYCOL POWDER 17 GM PACK PO SCH (08:22)
[2019-02-28] MEDS: FLUDROCORTISONE 0.1 MG TABLET PO SCH (08:22)
[2019-02-28] MEDS: CLOPIDOGREL 75 MG TABLET PO SCH (08:22)
[2019-02-28] MEDS: ASPIRIN EC 81 MG TABLET PO SCH (08:22)
[2019-02-28] MEDS: GABAPENTIN 300 MG CAPSULE PO SCH ×2 (08:23→21:07)
[2019-02-28] MEDS: PANTOPRAZOLE 40 MG TABLET PO SCH (08:23)
[2019-02-28] MEDS: INSULIN LISPRO 100 UNIT/ML SUBCUT SCH ×4 (08:23→21:10)
[2019-02-28] MEDS: BISACODYL 5 MG TABLET PO SCH (08:23)
[2019-02-28] MEDS: MULTIVITAMIN (CENTRUM) TABLET PO SCH (08:23)
[2019-02-28 08:24] LABS: Hematocrit 24.4 VOL% (42.0-52.0); Hemoglobin 7.8 GM/DL (14.0-18.0)
[2019-02-28] MEDS: LEVOFLOXACIN INJ 750 MG in PREMIX 1 EACH IV SCH (09:42)
[2019-02-28] MEDS: amLODIPine 10 MG TABLET PO SCH (09:44)
[2019-02-28] MEDS: SODIUM CHLORIDE 0.9% 1,000 ML IV SCH (15:40)
[2019-02-28] MEDS: ATORVASTATIN 40 MG TABLET PO SCH (21:06)
[2019-02-28] MEDS: SERTRALINE 50 MG TABLET PO SCH (21:07)
[2019-02-28] MEDS: ISOSORBIDE MONONITRATE 30 MG TABLET PO SCH (21:07)
[2019-03-01] MEDS: ALBUTEROL/IPRATROPIUM 3 ML NEB RESP TX SCH ×4 (02:06→20:11)
[2019-03-01] MEDS: INSULIN LISPRO 100 UNIT/ML SUBCUT SCH ×4 (09:15→21:30)
[2019-03-01] MEDS: CLOPIDOGREL 75 MG TABLET PO SCH (09:16)
[2019-03-01] MEDS: ACETAMINOPHEN 325 MG TABLET PO PRN (09:16)
[2019-03-01] MEDS: TAMSULOSIN 0.4 MG CAPSULE PO SCH ×2 (09:17→21:26)
[2019-03-01] MEDS: ASPIRIN EC 81 MG TABLET PO SCH (09:17)
[2019-03-01] MEDS: carvediloL 3.125 MG TABLET PO SCH ×2 (09:17→16:23)
[2019-03-01] MEDS: FLUDROCORTISONE 0.1 MG TABLET PO SCH (09:17)
[2019-03-01] MEDS: PANTOPRAZOLE 40 MG TABLET PO SCH (09:17)
[2019-03-01] MEDS: amLODIPine 10 MG TABLET PO SCH (09:17)
[2019-03-01] MEDS: MULTIVITAMIN (CENTRUM) TABLET PO SCH (09:17)
[2019-03-01] MEDS: GABAPENTIN 300 MG CAPSULE PO SCH ×2 (09:17→21:27)
[2019-03-01] MEDS: BISACODYL 5 MG TABLET PO SCH (09:18)
[2019-03-01] MEDS: LEVOFLOXACIN INJ 750 MG in PREMIX 1 EACH IV SCH (09:18)
[2019-03-01] MEDS: POLYETHYLENE GLYCOL POWDER 17 GM PACK PO SCH (09:19)
[2019-03-01] MEDS: ISOSORBIDE MONONITRATE 30 MG TABLET PO SCH (21:26)
[2019-03-01] MEDS: ATORVASTATIN 40 MG TABLET PO SCH (21:26)
[2019-03-01] MEDS: SERTRALINE 50 MG TABLET PO SCH (21:27)
[2019-03-02] MEDS: ALBUTEROL/IPRATROPIUM 3 ML NEB RESP TX SCH ×4 (00:29→19:42)
[2019-03-02 05:24] LABS: Basophils % 0.2 % (0.0-0.8); Eosinophils # 0.1 10*3/uL (0.0-0.87); Eosinophils % 2.5 % (0.00-10.9); Hematocrit 25.5 VOL% (42.0-52.0); Hemoglobin 7.7 GM/DL (14.0-18.0); Immature Granulocytes % 0.4 %; Immature Granulocytes Absolute 0.02 #; Lymphocytes # 1.5 10*3/uL (1.4-4.0); Lymphocytes % 26.8 % (21.2-54.2); Mean Corpuscular HGB Conc 30.2 GM/DL (32-36); Mean Corpuscular Volume 88.9 FL (87-102); Mean Platelet Volume 9.9 FL (9.6-12.0); Monocytes % 5.8 % (1.7-12.7); Neutrophils % 64.3 % (38.7-73.9); Platelet Count 275 T/CUMM (130-400); Red Blood Count 2.87 MC/CUMM (3.8-5.5); Red Cell Distribution Width 17.9 % (9.3-17.3); White Blood Count 5.5 T/CUMM (4-12)
[2019-03-02 05:44] LABS: Calcium 7.3 MG/DL (8.5-10.1); Osmolality,Calculated 276.5 MOS/KG (273-304)
[2019-03-02] MEDS: INSULIN LISPRO 100 UNIT/ML SUBCUT SCH ×4 (09:38→22:15)
[2019-03-02] MEDS: BISACODYL 5 MG TABLET PO SCH (09:40)
[2019-03-02] MEDS: FLUDROCORTISONE 0.1 MG TABLET PO SCH (09:40)
[2019-03-02] MEDS: MULTIVITAMIN (CENTRUM) TABLET PO SCH (09:41)
[2019-03-02] MEDS: POLYETHYLENE GLYCOL POWDER 17 GM PACK PO SCH (09:42)
[2019-03-02] MEDS: PANTOPRAZOLE 40 MG TABLET PO SCH (09:42)
[2019-03-02] MEDS: CLOPIDOGREL 75 MG TABLET PO SCH (09:42)
[2019-03-02] MEDS: TAMSULOSIN 0.4 MG CAPSULE PO SCH ×2 (09:42→20:48)
[2019-03-02] MEDS: GABAPENTIN 300 MG CAPSULE PO SCH ×3 (09:42→20:48)
[2019-03-02] MEDS: ASPIRIN EC 81 MG TABLET PO SCH (09:42)
[2019-03-02] MEDS: LEVOFLOXACIN INJ 750 MG in PREMIX 1 EACH IV SCH (09:43)
[2019-03-02] MEDS: amLODIPine 10 MG TABLET PO SCH (09:44)
[2019-03-02] MEDS: carvediloL 3.125 MG TABLET PO SCH ×2 (11:57→17:47)
[2019-03-02] MEDS: ATORVASTATIN 40 MG TABLET PO SCH (20:47)
[2019-03-02] MEDS: SERTRALINE 50 MG TABLET PO SCH (20:48)
[2019-03-02] MEDS: ISOSORBIDE MONONITRATE 30 MG TABLET PO SCH (20:48)
[2019-03-02] MEDS: MAGNESIUM SULF RIDER 2 GM in PREMIX 1 EACH IV PRN (20:48)
[2019-03-02] MEDS: SODIUM CHLORIDE 0.9% 1,000 ML IV SCH (22:15)
[2019-03-03] MEDS: ALBUTEROL/IPRATROPIUM 3 ML NEB RESP TX SCH ×2 (00:48→07:17)
[2019-03-03] MEDS: SODIUM CHLORIDE 0.9% 1,000 ML IV SCH (01:16)
[2019-03-03] MEDS: INSULIN LISPRO 100 UNIT/ML SUBCUT SCH (07:23)
[2019-03-03 07:43] VITALS: BP 104/64
[2019-03-03 08:24] LABS: Basophils % 0.2 % (0.0-0.8); Eosinophils # 0.1 10*3/uL (0.0-0.87); Eosinophils % 1.5 % (0.00-10.9); Hemoglobin 7.5 GM/DL (14.0-18.0); Immature Granulocytes % 0.2 %; Immature Granulocytes Absolute 0.01 #; Lymphocytes # 1.6 10*3/uL (1.4-4.0); Lymphocytes % 27.5 % (21.2-54.2); Mean Corpuscular Volume 88.7 FL (87-102); Mean Platelet Volume 10.3 FL (9.6-12.0); Monocytes % 5.9 % (1.7-12.7); Neutrophils % 64.7 % (38.7-73.9); Platelet Count 287 T/CUMM (130-400); Red Blood Count 2.82 MC/CUMM (3.8-5.5); Red Cell Distribution Width 17.6 % (9.3-17.3); White Blood Count 5.9 T/CUMM (4-12)
[2019-03-03 08:44] LABS: Calcium 7.4 MG/DL (8.5-10.1); Osmolality,Calculated 280.4 MOS/KG (273-304)
[2019-03-03] MEDS ORDERED: cefTRIAXone 1,000 MG in SYRINGE 1 EACH IV SCH (09:00)
[2019-03-03] MEDS ORDERED: AZITHROMYCIN INJ 500 MG in SODIUM CHLORIDE 0.9% 250 ML IV SCH (09:00)
[2019-03-03] MEDS: amLODIPine 10 MG TABLET PO SCH (09:20)
[2019-03-03] MEDS: FLUDROCORTISONE 0.1 MG TABLET PO SCH (09:20)
[2019-03-03] MEDS: BISACODYL 5 MG TABLET PO SCH (09:20)
[2019-03-03] MEDS: PANTOPRAZOLE 40 MG TABLET PO SCH (09:20)
[2019-03-03] MEDS: GABAPENTIN 300 MG CAPSULE PO SCH (09:20)
[2019-03-03] MEDS: MULTIVITAMIN (CENTRUM) TABLET PO SCH (09:20)
[2019-03-03] MEDS: TAMSULOSIN 0.4 MG CAPSULE PO SCH (09:21)
[2019-03-03] MEDS: ASPIRIN EC 81 MG TABLET PO SCH (09:21)
[2019-03-03] MEDS: carvediloL 3.125 MG TABLET PO SCH (09:21)
[2019-03-03] MEDS: CLOPIDOGREL 75 MG TABLET PO SCH (09:21)
[2019-03-03] MEDS: POLYETHYLENE GLYCOL POWDER 17 GM PACK PO SCH (09:22)
== END 2019-03-03 11:09 | disposition home or self-care (01) | DRG 194 ==
LOC: N.ED 14:36 → N.EDINP 16:51 → SUATTDRO 16:51 → N.2E 18:25
PROVIDERS: ADMIT Internal Medicine; ATTEND Internal Medicine Nephrology

== ENCOUNTER 2019-06-04 16:32 | Inpatient (IN) ==
[2019-06-04] MEDS ORDERED: SODIUM CHLORIDE 0.9% 500 ML IV STA (17:06)
[2019-06-04 17:48] LABS: Basophils % 0.3 % (0.0-0.8); Eosinophils # 0.1 10*3/uL (0.0-0.87); Eosinophils % 0.7 % (0.00-10.9); Hematocrit 32.9 VOL% (42.0-52.0); Hemoglobin 10.7 GM/DL (14.0-18.0); Immature Granulocytes % 0.3 %; Immature Granulocytes Absolute 0.02 #; Lymphocytes # 0.8 10*3/uL (1.4-4.0); Lymphocytes % 11.4 % (21.2-54.2); Mean Corpuscular HGB Conc 32.5 GM/DL (32-36); Mean Corpuscular Volume 94.3 FL (87-102); Mean Platelet Volume 9.7 FL (9.6-12.0); Monocytes % 5.3 % (1.7-12.7); Platelet Count 255 T/CUMM (130-400); Red Blood Count 3.49 MC/CUMM (3.8-5.5); Red Cell Distribution Width 16.2 % (9.3-17.3)
[2019-06-04 18:08] LABS: Apearance,Urine CLEAR (Clear); Bilirubin,Urine Negative (Negative); Blood, Urine Negative (Negative); Glucose,Urine (UA) >=500 mg/dL (Negative); Ketones,Urine Negative (Negative); Mucus,Urine Occasional /LPF (Occasional); Nitrite,Urine Negative (Negative); Protein,Urine >=500 MG/DL; RBC,Urine 1 /HPF (0-4); Urine Color Yellow (Yellow); Urine Specific Gravity 1.012 (1.001-1.035); Urine Urobilinogen < 2.0 EU/DL (0.2-1.0); WBC,Urine 2 /HPF (0-6)
[2019-06-04 18:24] LABS: Bilirubin,Total 0.4 MG/DL (0.2-1.0); Calcium 8.2 MG/DL (8.5-10.1); Total Protein 6.2 G/DL (6.4-8.3)
[2019-06-04] MEDS ORDERED: DOCUSATE SODIUM 100 MG CAPSULE PO PRN (20:39)
[2019-06-04] MEDS ORDERED: ACETAMINOPHEN 325 MG TABLET PO PRN (20:39)
[2019-06-04] MEDS ORDERED: GLUCAGON 1 MG VIAL IM PRN (20:39)
[2019-06-04] MEDS ORDERED: ONDANSETRON 4 MG/2 ML VIAL IV PRN (20:39)
[2019-06-04] MEDS ORDERED: DEXTROSE 10% 250 ML BAG IV PRN (20:39)
[2019-06-04] MEDS ORDERED: NICOTINE 21 MG/24 HR PATCH TRANSDERM PRN (20:39)
[2019-06-04] MEDS: ENOXAPARIN 40 MG/0.4 ML SYRINGE SUBCUT SCH (21:33)
[2019-06-04] MEDS: SODIUM CHLORIDE 0.9% 1,000 ML IV SCH (21:35)
[2019-06-04] MEDS: INSULIN LISPRO 100 UNIT/ML SUBCUT SCH (23:07)
[2019-06-05 06:01] LABS: Basophils % 0.3 % (0.0-0.8); Eosinophils # 0.1 10*3/uL (0.0-0.87); Eosinophils % 1.4 % (0.00-10.9); Hematocrit 31.9 VOL% (42.0-52.0); Hemoglobin 10.3 GM/DL (14.0-18.0); Immature Granulocytes % 0.2 %; Immature Granulocytes Absolute 0.01 #; Lymphocytes # 2.1 10*3/uL (1.4-4.0); Lymphocytes % 33.2 % (21.2-54.2); Mean Corpuscular HGB Conc 32.3 GM/DL (32-36); Mean Corpuscular Volume 92.5 FL (87-102); Monocytes % 7.8 % (1.7-12.7); Neutrophils % 57.1 % (38.7-73.9); Platelet Count 242 T/CUMM (130-400); Red Blood Count 3.45 MC/CUMM (3.8-5.5); Red Cell Distribution Width 15.9 % (9.3-17.3); White Blood Count 6.3 T/CUMM (4-12)
[2019-06-05 06:19] LABS: Calcium 8.7 MG/DL (8.5-10.1); Osmolality,Calculated 279.7 MOS/KG (273-304); Risk Ratio 3.05
[2019-06-05] MEDS: ASPIRIN EC 81 MG TABLET PO SCH (08:26)
[2019-06-05] MEDS: INSULIN LISPRO 100 UNIT/ML SUBCUT SCH ×4 (08:26→20:53)
[2019-06-05] MEDS: carvediloL 3.125 MG TABLET PO SCH ×2 (08:43→20:37)
[2019-06-05] MEDS: hydrALAZINE 25 MG TABLET PO SCH ×2 (08:43→20:37)
[2019-06-05] MEDS: SODIUM CHLORIDE 0.9% 1,000 ML IV SCH ×2 (11:44→23:19)
[2019-06-05] MEDS: NICOTINE 21 MG/24 HR PATCH TRANSDERM SCH (14:32)
[2019-06-05] MEDS: ENOXAPARIN 40 MG/0.4 ML SYRINGE SUBCUT SCH (20:37)
[2019-06-05] MEDS: hydrALAZINE 20 MG/1 ML VIAL IV PRN (23:20)
[2019-06-06] MEDS: hydrALAZINE 20 MG/1 ML VIAL IV PRN ×2 (04:08→21:23)
[2019-06-06 04:31] LABS: Basophils % 0.1 % (0.0-0.8); Eosinophils # 0.2 10*3/uL (0.0-0.87); Eosinophils % 2.2 % (0.00-10.9); Hematocrit 30.7 VOL% (42.0-52.0); Hemoglobin 10.1 GM/DL (14.0-18.0); Immature Granulocytes % 0.1 %; Immature Granulocytes Absolute 0.01 #; Lymphocytes # 2.5 10*3/uL (1.4-4.0); Lymphocytes % 34.1 % (21.2-54.2); Mean Corpuscular HGB Conc 32.9 GM/DL (32-36); Mean Corpuscular Volume 92.5 FL (87-102); Mean Platelet Volume 9.9 FL (9.6-12.0); Monocytes % 7.1 % (1.7-12.7); Neutrophils % 56.4 % (38.7-73.9); Platelet Count 230 T/CUMM (130-400); Red Blood Count 3.32 MC/CUMM (3.8-5.5); Red Cell Distribution Width 16.1 % (9.3-17.3); White Blood Count 7.2 T/CUMM (4-12)
[2019-06-06 05:08] LABS: Calcium 8.3 MG/DL (8.5-10.1); Osmolality,Calculated 284.4 MOS/KG (273-304)
[2019-06-06] MEDS: NICOTINE 21 MG/24 HR PATCH TRANSDERM SCH (09:21)
[2019-06-06] MEDS: ASPIRIN EC 81 MG TABLET PO SCH (09:22)
[2019-06-06] MEDS: hydrALAZINE 25 MG TABLET PO SCH ×2 (09:22→21:22)
[2019-06-06] MEDS: carvediloL 3.125 MG TABLET PO SCH ×2 (09:22→21:22)
[2019-06-06] MEDS: INSULIN LISPRO 100 UNIT/ML SUBCUT SCH ×4 (09:22→21:22)
[2019-06-06] MEDS: SODIUM CHLORIDE 0.9% 1,000 ML IV SCH (13:10)
[2019-06-06] MEDS: ENOXAPARIN 40 MG/0.4 ML SYRINGE SUBCUT SCH (21:22)
[2019-06-07 05:20] LABS: Basophils % 0.4 % (0.0-0.8); Eosinophils # 0.1 10*3/uL (0.0-0.87); Eosinophils % 1.8 % (0.00-10.9); Hematocrit 33.4 VOL% (42.0-52.0); Hemoglobin 10.6 GM/DL (14.0-18.0); Immature Granulocytes % 0.3 %; Immature Granulocytes Absolute 0.02 #; Lymphocytes # 2.2 10*3/uL (1.4-4.0); Lymphocytes % 30.5 % (21.2-54.2); Mean Corpuscular HGB Conc 31.7 GM/DL (32-36); Mean Corpuscular Volume 95.7 FL (87-102); Mean Platelet Volume 10.2 FL (9.6-12.0); Monocytes % 7.1 % (1.7-12.7); Neutrophils % 59.9 % (38.7-73.9); Platelet Count 252 T/CUMM (130-400); Red Blood Count 3.49 MC/CUMM (3.8-5.5); Red Cell Distribution Width 16.5 % (9.3-17.3); White Blood Count 7.2 T/CUMM (4-12)
[2019-06-07 05:34] LABS: Calcium 8.2 MG/DL (8.5-10.1); Osmolality,Calculated 285.3 MOS/KG (273-304)
[2019-06-07] MEDS: SODIUM CHLORIDE 0.9% 1,000 ML IV SCH (06:39)
[2019-06-07] MEDS: INSULIN LISPRO 100 UNIT/ML SUBCUT SCH ×4 (08:22→20:57)
[2019-06-07] MEDS: ASPIRIN EC 81 MG TABLET PO SCH (09:07)
[2019-06-07] MEDS: carvediloL 3.125 MG TABLET PO SCH ×2 (09:07→20:34)
[2019-06-07] MEDS: hydrALAZINE 25 MG TABLET PO SCH ×2 (09:07→20:34)
[2019-06-07] MEDS: NICOTINE 21 MG/24 HR PATCH TRANSDERM SCH (09:08)
[2019-06-07] MEDS: ENOXAPARIN 40 MG/0.4 ML SYRINGE SUBCUT SCH (20:34)
[2019-06-08] MEDS: SODIUM CHLORIDE 0.9% 1,000 ML IV SCH (03:37)
[2019-06-08 05:15] LABS: Basophils % 0.1 % (0.0-0.8); Eosinophils % 0.1 % (0.00-10.9); Hematocrit 32.8 VOL% (42.0-52.0); Hemoglobin 10.4 GM/DL (14.0-18.0); Immature Granulocytes % 0.1 %; Immature Granulocytes Absolute 0.01 #; Lymphocytes # 0.9 10*3/uL (1.4-4.0); Lymphocytes % 12.6 % (21.2-54.2); Mean Corpuscular HGB Conc 31.7 GM/DL (32-36); Mean Corpuscular Volume 94.8 FL (87-102); Monocytes % 3.8 % (1.7-12.7); Neutrophils % 83.3 % (38.7-73.9); Platelet Count 208 T/CUMM (130-400); Red Blood Count 3.46 MC/CUMM (3.8-5.5); Red Cell Distribution Width 16.1 % (9.3-17.3); White Blood Count 6.8 T/CUMM (4-12)
[2019-06-08] MEDS: INSULIN LISPRO 100 UNIT/ML SUBCUT SCH ×4 (08:09→21:10)
[2019-06-08] MEDS: carvediloL 3.125 MG TABLET PO SCH (08:49)
[2019-06-08] MEDS: hydrALAZINE 25 MG TABLET PO SCH (08:49)
[2019-06-08] MEDS: ASPIRIN EC 81 MG TABLET PO SCH (08:49)
[2019-06-08] MEDS: NICOTINE 21 MG/24 HR PATCH TRANSDERM SCH (08:49)
[2019-06-08] MEDS ORDERED: MAGNESIUM SULF RIDER 2 GM in PREMIX 1 EACH IV ONE (09:35)
[2019-06-08] MEDS: ENOXAPARIN 40 MG/0.4 ML SYRINGE SUBCUT SCH (21:09)
[2019-06-08] MEDS: levETIRAcetam 500 MG TABLET PO SCH (21:09)
[2019-06-08] MEDS: carvediloL 6.25 MG TABLET PO SCH (21:10)
[2019-06-09 05:28] LABS: Basophils % 0.3 % (0.0-0.8); Eosinophils # 0.1 10*3/uL (0.0-0.87); Eosinophils % 1.8 % (0.00-10.9); Hematocrit 29.5 VOL% (42.0-52.0); Hemoglobin 9.4 GM/DL (14.0-18.0); Immature Granulocytes % 0.3 %; Immature Granulocytes Absolute 0.01 #; Lymphocytes # 1.6 10*3/uL (1.4-4.0); Lymphocytes % 38.8 % (21.2-54.2); Mean Corpuscular HGB Conc 31.9 GM/DL (32-36); Mean Corpuscular Volume 95.8 FL (87-102); Mean Platelet Volume 10.1 FL (9.6-12.0); Neutrophils % 49.8 % (38.7-73.9); Platelet Count 187 T/CUMM (130-400); Red Blood Count 3.08 MC/CUMM (3.8-5.5); Red Cell Distribution Width 16.3 % (9.3-17.3)
[2019-06-09 05:54] LABS: Calcium 8.2 MG/DL (8.5-10.1); Osmolality,Calculated 277.8 MOS/KG (273-304)
[2019-06-09] MEDS: ASPIRIN EC 81 MG TABLET PO SCH (08:57)
[2019-06-09] MEDS: NICOTINE 21 MG/24 HR PATCH TRANSDERM SCH (08:57)
[2019-06-09] MEDS: carvediloL 6.25 MG TABLET PO SCH (08:57)
[2019-06-09] MEDS: levETIRAcetam 500 MG TABLET PO SCH (08:57)
[2019-06-09 09:50] VITALS: BP 106/53
[2019-06-09] MEDS: INSULIN LISPRO 100 UNIT/ML SUBCUT SCH (10:32)
[2019-06-09] MEDS: SODIUM CHLORIDE 0.9% 1,000 ML IV SCH (10:49)
== END 2019-06-09 11:07 | disposition home or self-care (01) | DRG 101 ==
LOC: EDUNIT# → EDBD → N.ED 16:32 → N.EDINP 16:32 → SUATTDRO 19:40 → N.EDINP 20:20 → N.TELEN 20:37
PROVIDERS: ADMIT Internal Medicine; ATTEND Internal Medicine Geriatric Medicine

== ENCOUNTER 2019-12-03 15:45 | Observation (INO) ==
[2019-12-03] MEDS ORDERED: amLODIPine 5 MG TABLET PO STA (16:31)
[2019-12-03 16:48] LABS: Basophils % 0.2 % (0.0-0.8); Eosinophils % 0.2 % (0.00-10.9); Hematocrit 38.9 VOL% (42.0-52.0); Hemoglobin 12.8 GM/DL (14.0-18.0); Immature Granulocytes % 0.5 %; Immature Granulocytes Absolute 0.04 #; Lymphocytes # 0.8 10*3/uL (1.4-4.0); Mean Corpuscular HGB Conc 32.9 GM/DL (32-36); Mean Corpuscular Volume 95.1 FL (87-102); Mean Platelet Volume 9.6 FL (9.6-12.0); Monocytes % 4.6 % (1.7-12.7); Neutrophils % 85.5 % (38.7-73.9); Platelet Count 218 T/CUMM (130-400); Red Blood Count 4.09 MC/CUMM (3.8-5.5); Red Cell Distribution Width 13.8 % (9.3-17.3); White Blood Count 8.4 T/CUMM (4-12)
[2019-12-03 17:23] LABS: Albumin 3.4 G/DL (3.4-5.0); Bilirubin,Total 0.4 MG/DL (0.2-1.0); Calcium 8.9 MG/DL (8.5-10.1); Total Protein 7.3 G/DL (6.4-8.3)
[2019-12-03] MEDS ORDERED: cloNIDine 0.1 MG TABLET PO STA (17:47)
[2019-12-03] MEDS ORDERED: INSULIN REGULAR 100 UNIT/ML IV STA (18:13)
[2019-12-03] MEDS ORDERED: DEXTROSE 50% 25 GM/50 ML VIAL IV STA (18:13)
[2019-12-03] MEDS ORDERED: DOCUSATE SODIUM 100 MG CAPSULE PO PRN (19:27)
[2019-12-03] MEDS ORDERED: ACETAMINOPHEN 325 MG TABLET PO PRN (19:27)
[2019-12-03] MEDS ORDERED: hydrALAZINE 20 MG/1 ML VIAL IV PRN (19:27)
[2019-12-03] MEDS ORDERED: DEXTROSE 50% 25 GM/50 ML VIAL IV PRN (19:27)
[2019-12-03] MEDS ORDERED: ONDANSETRON 4 MG/2 ML VIAL IV PRN (19:27)
[2019-12-03] MEDS ORDERED: SODIUM POLYSTYRENE SULFATE 15 GM/60 ML BOTTLE PO STA (19:27)
[2019-12-03] MEDS ORDERED: GLUCAGON 1 MG VIAL IM PRN (19:27)
[2019-12-03] MEDS ORDERED: DEXTROSE 50% 25 GM/50 ML SYRINGE IV ONE (20:24)
[2019-12-03] MEDS: levETIRAcetam 500 MG TABLET PO SCH (23:28)
[2019-12-03] MEDS: INSULIN LISPRO 100 UNIT/ML SUBCUT SCH (23:28)
[2019-12-03] MEDS: SODIUM CHLORIDE 0.9% 1,000 ML IV SCH (23:28)
[2019-12-03] MEDS: GABAPENTIN 300 MG CAPSULE PO SCH (23:28)
[2019-12-04] MEDS: SERTRALINE 100 MG TABLET PO SCH ×2 (01:10→21:15)
[2019-12-04] MEDS: NIFEdipine 10 MG CAPSULE PO PRN (02:29)
[2019-12-04] MEDS: SODIUM CHLORIDE 0.9% 1,000 ML IV SCH ×3 (03:00→18:22)
[2019-12-04 05:46] LABS: Basophils % 0.2 % (0.0-0.8); Eosinophils # 0.1 10*3/uL (0.0-0.87); Hematocrit 37.1 VOL% (42.0-52.0); Immature Granulocytes % 0.2 %; Immature Granulocytes Absolute 0.02 #; Lymphocytes # 2.1 10*3/uL (1.4-4.0); Lymphocytes % 25.6 % (21.2-54.2); Mean Corpuscular HGB Conc 32.3 GM/DL (32-36); Mean Corpuscular Volume 96.6 FL (87-102); Mean Platelet Volume 9.7 FL (9.6-12.0); Monocytes % 8.1 % (1.7-12.7); Neutrophils % 64.9 % (38.7-73.9); Platelet Count 214 T/CUMM (130-400); Red Blood Count 3.84 MC/CUMM (3.8-5.5); Red Cell Distribution Width 13.8 % (9.3-17.3); White Blood Count 8.1 T/CUMM (4-12)
[2019-12-04 07:25] LABS: Calcium 8.8 MG/DL (8.5-10.1)
[2019-12-04 07:26] LABS: Albumin 3.1 G/DL (3.4-5.0); Bilirubin,Total 0.97 MG/DL (0.2-1.0); Osmolality,Calculated 284.5 MOS/KG (273-304); Total Protein 6.7 G/DL (6.4-8.3)
[2019-12-04] MEDS ORDERED: SODIUM POLYSTYRENE SULFATE 15 GM/60 ML BOTTLE PO ONE (08:12)
[2019-12-04 09:28] LABS: Calcium 8.6 MG/DL (8.5-10.1); Osmolality,Calculated 285.5 MOS/KG (273-304)
[2019-12-04] MEDS: levETIRAcetam 500 MG TABLET PO SCH ×2 (09:29→21:14)
[2019-12-04] MEDS: GABAPENTIN 300 MG CAPSULE PO SCH ×2 (09:30→21:15)
[2019-12-04] MEDS: ASPIRIN EC 81 MG TABLET PO SCH (09:30)
[2019-12-04] MEDS: amLODIPine 2.5 MG TABLET PO SCH (09:30)
[2019-12-04] MEDS: CLOPIDOGREL 75 MG TABLET PO SCH (09:30)
[2019-12-04] MEDS: INSULIN LISPRO 100 UNIT/ML SUBCUT SCH ×4 (09:35→21:14)
[2019-12-05] MEDS: NIFEdipine 10 MG CAPSULE PO PRN ×2 (00:20→12:56)
[2019-12-05] MEDS: SODIUM CHLORIDE 0.9% 1,000 ML IV SCH ×3 (00:34→14:42)
[2019-12-05] MEDS: amLODIPine 2.5 MG TABLET PO SCH (09:01)
[2019-12-05] MEDS: GABAPENTIN 300 MG CAPSULE PO SCH (09:02)
[2019-12-05] MEDS: levETIRAcetam 500 MG TABLET PO SCH (09:02)
[2019-12-05] MEDS: CLOPIDOGREL 75 MG TABLET PO SCH (09:02)
[2019-12-05] MEDS: INSULIN LISPRO 100 UNIT/ML SUBCUT SCH ×2 (09:02→13:20)
[2019-12-05] MEDS: ASPIRIN EC 81 MG TABLET PO SCH (09:02)
[2019-12-05 14:42] VITALS: BP 167/80
== END 2019-12-05 14:45 | disposition home health service (06) ==
LOC: N.ED 15:45 → N.EDINP 15:45 → N.3E 19:55 → N.TELEN 12-04 00:18
PROVIDERS: ADMIT Family Medicine; ATTEND Family Medicine